=== PATIENT | male | born 1970 | race Caucasian/White ===

== ENCOUNTER 2020-05-25 21:10 | Emergency (ER) | payer OTHER ==
[~2020-05-25] VITALS: Ht 182.9 cm; Wt 68.0 kg
[2020-05-25 21:14] VITALS: Ht 182.9 cm; Wt 68.0 kg
[2020-05-25 22:26] VITALS: BP 124/82
== END 2020-05-25 22:25 | disposition home or self-care (01) ==
LOC: ED 21:10
DX: R10.13 Epigastric pain (principal)
CPT/HCPCS: J7512